=== PATIENT | male | born 1985 | race Caucasian/White ===

== ENCOUNTER 2016-10-28 13:22 | Emergency (ER) | payer SELFPAY ==
[~2016-10-28] VITALS: Wt 65.0 kg
[~2016-10-28 13:22] MED LIST: CALC400T19 PO; CLIN-73 PO; DENIES; HYDR-762 PO; IBUP800T25 PO; LORA0.5T PO; ONDA4TAB35 PO; ONDA4TAB8 PO; RANI150T9 PO
[2016-10-28] MEDS ORDERED: morphine 4 MG/ML VIAL IV STA (14:06)
[2016-10-28] MEDS ORDERED: SOD CHLORIDE 0.9% 1,000 ML IV STA (14:06)
[2016-10-28] MEDS ORDERED: ONDANSETRON 4 MG INJ IV STA ×2 (14:06→14:58)
[2016-10-28] MEDS ORDERED: ESOM20CA PO (14:21)
[2016-10-28 14:35] LABS: BASOPHILS % 0.4 % (0.0-2.0); EOSINOPHILS # 0.1 10^3/ul (0.0-0.5); EOSINOPHILS % 0.9 % (0.0-7.0); HEMATOCRIT 47.2 % (42.0-52.0); HEMOGLOBIN 16.6 g/dl (14.0-18.0); LYMPHOCYTES # 0.4 10^3/ul (0.8-2.9); LYMPHOCYTES % 5.5 % (15.0-51.0); MEAN CORPUSCULAR HGB CONC 35.2 g/dl (32.0-37.0); MEAN CORPUSCULAR VOLUME 90.9 fl (82.0-101.0); MEAN PLATELET VOLUME 7.1 fl (7.4-10.4); MONOCYTE # 0.7 10^3/ul (0.3-0.9); NEUTROPHIL # 6.1 10^3/ul (1.6-7.5); NEUTROPHILS % 84.2 % (39.0-77.0); PLATELET COUNT 243 10^3/UL (140-440); RED CELL DISTRIBUTION WIDTH 12.8 % (11.5-14.5); UNCORRECTED WBC 7.3 10^3/ul (4.8-10.8); WHITE BLOOD COUNT 7.3 10^3/ul (4.8-10.8)
[2016-10-28 14:38] LABS: CONDITION 1
[2016-10-28 14:40] LABS: INR 0.97; PARTIAL THROMBOPLASTIN TIME 30.4 Sec (25.0-35.0); PROTIME 12.9 Sec (12.2-14.2)
[2016-10-28] MEDS ORDERED: BELLADONNA/PHENOBARBITAL TAB PO STA (14:58)
[2016-10-28] MEDS ORDERED: HYDROmorphONE 1 MG/ML SYG IV STA (14:58)
[2016-10-28] MEDS ORDERED: LIDOCAINE/MYLANTA 40 ML BTL PO STA (14:58)
[2016-10-28 15:22] LABS: POTASSIUM 3.8 mmol/L (3.5-5.1)
[2016-10-28 15:24] LABS: ALBUMIN/GLOBULIN RATIO 1.61; BILIRUBIN,INDIRECT 1.2 mg/dl (0-1.1); BILIRUBIN,TOTAL 1.2 mg/dl (0.2-1.3); CREATININE 0.87 mg/dl (0.61-1.24); TOTAL PROTEIN 8.1 g/dl (6.1-8.1)
[2016-10-28 15:25] LABS: CALCIUM 9.8 mg/dl (8.4-10.2)
[2016-10-28] MEDS ORDERED: ACETAMINOPHEN 500 MG TAB PO STA (15:36)
[2016-10-28] MEDS ORDERED: IBUPROFEN 800 MG TAB PO ONE (16:00)
[2016-10-28] MEDS ORDERED: SOD CHLORIDE 0.9% 100 ML ONE (16:52)
[2016-10-28] MEDS ORDERED: IOHEXOL 300MG/ML 150 ML BTL ONE (16:52)
[2016-10-28 17:05] LABS: ADD UMIC YES; URINE BILIRUBIN (Dip) NEGATIVE (NEGATIVE); URINE BLOOD (Dip) TRACE (NEGATIVE); URINE COLOR LT. YELLOW (YELLOW); URINE GLUCOSE (Dip) NEGATIVE (NEGATIVE); URINE KETONES (Dip) NEGATIVE (NEGATIVE); URINE LEUKOCYTE ESTERASE (Dip) NEGATIVE (NEGATIVE); URINE NITRITE (Dip) NEGATIVE (NEGATIVE); URINE TOTAL PROTEIN (Dip) NEGATIVE (NEGATIVE); URINE UROBILINOGEN (Dip) 1.0 E.U./dL (0.1-1.0)
[2016-10-28 17:21] LABS: URINE RBCS 0-2 /HPF (0)
--- NOTE | 2016-10-28 17:24 | RADRPT ---
PROCEDURE: CT Abdomen and Pelvis with contrast. CLINICAL INDICATION: Abdomen and pelvis pain. TECHNIQUE: CT scan of the abdomen and pelvis with contrast was performed. The patient was scanned following the uncomplicated intravenous administration of 100 cc of Omnipaque-300. Coronal and sag ittal reformatted images were obtained from the axial source images. Images were reviewed on a high- resolution PACS workstation. Total exam DLP is 858.74 mGy-cm. CTDIvol is 15.21 mGy. One or more o f the following dose reduction techniques were used: Automated exposure control, adjustment of the m A and/or kV according to patient size, use of iterative reconstruction technique. COMPARISON: Right upper quadrant abdomen ultrasound dated 12/30/2015. FINDINGS: The lung bases are normal. There is no pleural effusion. The liver is normal in size and attenuation. There is no focal hepatic lesion. The gallbladder and bile ducts are normal. The spleen is normal in size. There is no focal splenic lesion. Both adrenals are normal with no enlargement or mass. The pancreas is unremarkable with no mass or evidence of pancreatitis. Both kidneys demonstrate normal contrast enhancement. There is no renal mass or hydronephrosis. The abdominal aorta is not dilated. There is no retroperitoneal lymphadenopathy or mass. There is no pelvic lymphadenopathy or mass. The bladder and distal ureters are normal. The periappendiceal region is unremarkable with no evidence of appendicitis. The appendix is well se en and appears normal. The bowel and mesentery are normal. There is no free fluid or free gas. The osseous structures are unremarkable with no fracture or lytic lesion. IMPRESSION: 1. Unremarkable CT scan of the abdomen and pelvis. RPTAT: QQ .Irving Yoder MD, Date Time Electronically viewed and signed by .Irving Yoder MD, MD on 10/28/2016 17:24 .R/
[2016-10-28] MEDS ORDERED: DICLOFENAC SODIUM 37.5 MG/ML VIAL IV STA (17:42)
--- NOTE | 2016-10-28 18:00 | ERD ---
ER Documentation Chief Complaint Date/Time DATE: 10/28/16 TIME: 17:52 Chief Complaint lower abd pain with no signs of dysuria. nausea and vomiting. HPI This is a 31-year-old male with no past medical history that presents to the emergency department complaining of a sudden onset of severe diffuse abdominal cramping that occurred roughly 5 hours prior to arrival. He stated he felt very nauseous and had 3 episodes of nonbloody nonbilious emesis. He also states he had loose watery stools. He denies any recent travel or prolonged immobilization. He stated he had tactile fever with no shaking or chills. He did not take any antipyretics prior to arrival. He denies any chest pain or pressure that radiates to the neck arm back or jaw. He denies a sore throat. He denies a productive or nonproductive cough. Indicates he has never had any similar symptoms in the past. He denies any recent remote blunt or penetrating chest or abdominal wall trauma. He states he is not currently been on any antibiotics. He denies any recent ethanol intake or illicit drug use ROS All systems reviewed and are negative except as per history of present illness. Medications Home Meds Active Scripts Ibuprofen* (Motrin*) 800 Mg Tab, 800 MG PO Q6H Y for PAIN AND OR ELEVATED TEMP, #30 TAB Prov:MARISSA MILLER 10/28/16 Ondansetron (Ondansetron Odt) 4 Mg Tab.rapdis, 4 MG PO Q6H Y for NAUSEA AND/OR VOMITING, #10 TAB Prov:MARISSA MILLER 10/28/16 Reported Medications Esomeprazole Mag Trihydrate (Nexium) 20 Mg Capsule.dr, 20 MG PO DAILY, #30 CAP 10/28/16 Discontinued Reported Medications [Denies] No Conflict Check 12/19/09 Discontinued Scripts Ondansetron Hcl* (Zofran*) 4 Mg Tablet, 4 MG PO Q6H for NAUSEA AND/OR VOMITING, #10 TAB Prov:PRINCE HAWLEY NP 04/12/16 Ranitidine Hcl* (Zantac*) 150 Mg Tablet, 150 MG PO BID Y for EPIGASTRIC PAIN, # 10 TAB Prov:PRINCE HAWLEY NP 04/12/16 Lorazepam* (Lorazepam*) 0.5 Mg Tablet, 0.5 MG PO Q6 Y for ANXIETY, #5 TAB Prov:RAINER HERNANDEZ PA-C 02/04/16 Ondansetron Hcl* (Zofran*) 4 Mg Tablet, 4 MG PO Q8H Y for NAUSEA AND/OR VOMITING , #10 TAB Prov:CHULA SHELDON 02/02/16 Ranitidine Hcl* (Zantac*) 150 Mg Tablet, 150 MG PO BID Y for EPIGASTRIC PAIN, # 30 TAB Prov:CHULA SHELDON 02/02/16 Ondansetron Hcl* (Zofran* ODT) 4 mg -ODT Tab.disper, 4 MG PO Q6 Y for NAUSEA AND /OR VOMITING, #30 TAB Prov:ABDIAS ZAMARRIPA MD 12/30/15 Hydrocodone Bit-Acetaminophen* (Randall*) 10-325 Mg Tablet, 1 TAB PO Q6 Y for PAIN , #7 TAB Prov:ABDIAS ZAMARRIPA MD 12/30/15 Ibuprofen* (Motrin*) 800 Mg Tab, 800 MG PO Q6, #30 TAB Prov:JESSIKA NORIEGA PA-C 04/27/15 Clindamycin Hcl* (Clindamycin Hcl*) 300 Mg Capsule, 300 MG PO QID for 7 Days, CAP Prov:OSVALDO HAUSER WIRE PREPARATION WORKER 04/26/15 Calcium Carbonate* (Tums* Ultra) 1,000 Mg Tab.chew, 1000 MG PO TID, #30 TAB.CHEW Prov:OSVALDO HAUSER WIRE PREPARATION WORKER 02/14/15 Allergies Allergies: Coded Allergies: No Known Drug Allergies (Verified Allergy, Mild, 03/31/11) PMhx/Soc History of Surgery: No Anesthesia Reaction: No Hx Neurological Disorder: No Hx Respiratory Disorders: No Hx Cardiac Disorders: No Hx Psychiatric Problems: No Hx Miscellaneous Medical Probl: Yes (gastritis) Hx Alcohol Use: Yes (DRINK 7 BEERS 04/11/16) Hx Substance Use: Yes (CRYSTAL METH 04/11/16, AFTER 2YRS CLEAN) Hx Tobacco Use: No Smoking Status: Never smoker Physical Exam Vitals Vital Signs Date Time Temp Pulse Resp B/P Pulse Ox O2 Delivery O2 Flow Rate FiO2 10/28/16 13:27 101.5 125 22 138/85 98 Physical Exam Constitutional:Well-developed. Well-nourished. Patient was unable to sit still in a stretcher as he appeared to be in a significant amount of discomfort HEENT:Normocephalic. Atraumatic.Pupils were equal round reactive to light. Moist mucous membranes.No tonsillar exudates. Neck: No nuchal rigidity. No lymphadenopathy. No posterior cervical spine tenderness or step-offs. Respiratory: Not using accessory muscles of respiration.Lungs were clear to auscultation bilaterally. No rhonchi. No rales. No wheezing. Cardiovascular: Regular rate regular rhythm.No murmurs. No rubs were appreciated.S1, S2 normal. Distal pulses are palpable 2+ bilaterally. GI: Abdomen was soft. Diffuse abdominal tenderness. Non Distended. No pulsatile abdominal masses or bruits. No rebound. No guarding. Hyperactive bowel sounds Muscle skeletal: Full range of motion of both the upper and lower extremities bilaterally.Normal muscle tone.No assymetrical calf tenderness or swelling. Skin: No petechia, no purpura. No lesions on the palms or the soles of the feet. No maculopapular rash. NEURO: Patient was alert, awake, orientated x3.No facial droop. Gait observed and normal with no ataxia.Speech had regular rate and rhythm. No focal neurological deficits. Result Diagram: 10/28/16 1415 10/28/16 1415 Results 24 hrs Laboratory Tests Test 10/28/16 14:15 10/28/16 16:22 Activated Partial Thromboplast Time 30.4Sec Alanine Aminotransferase (ALT/SGPT) 66IU/L Albumin 5.0g/dl Albumin/Globulin Ratio 1.61 Alkaline Phosphatase 96IU/L Amylase Level 98U/L Anion Gap 21 Aspartate Amino Transf (AST/SGOT) 84IU/L Basophils # 0.010^3/ul Basophils % 0.4% Blood Morphology Comment Blood Urea Nitrogen 11mg/dl Calcium Level 9.8mg/dl Carbon Dioxide Level 25mmol/L Chloride Level 97mmol/L Creatinine 0.87mg/dl Direct Bilirubin 0.00mg/dl Eosinophils # 0.110^3/ul Eosinophils % 0.9% Globulin 3.10g/dl Glucose Level 114mg/dl Hematocrit 47.2% Hemoglobin 16.6g/dl INR International Normalized Ratio 0.97 Indirect Bilirubin 1.2mg/dl Lipase 84U/L Lymphocytes # 0.410^3/ul Lymphocytes % 5.5% Mean Corpuscular Hemoglobin 32.0pg Mean Corpuscular Hemoglobin Concent 35.2g/dl Mean Corpuscular Volume 90.9fl Mean Platelet Volume 7.1fl Monocytes # 0.710^3/ul Monocytes % 9.0% Neutrophils # 6.110^3/ul Neutrophils % 84.2% Nucleated Red Blood Cells # 0.010^3/ul Nucleated Red Blood Cells % 0.0/100WBC Platelet Count 56289^3/UL Potassium Level 3.8mmol/L Prothrombin Time 12.9Sec Prothrombin Time Ratio 1.0 Red Blood Count 5.2010^6/ul Red Cell Distribution Width 12.8% Sodium Level 139mmol/L Total Bilirubin 1.2mg/dl Total Protein 8.1g/dl White Blood Count 7.310^3/ul Urine Bilirubin NEGATIVE Urine Clarity CLEAR Urine Color LT. YELLOW Urine Epithelial Cells OCCASIONAL Urine Glucose NEGATIVE% Urine Hemoglobin TRACE Urine Ketones NEGATIVE Urine Leukocyte Esterase NEGATIVE Urine Microscopic RBC 0-2/HPF Urine Microscopic WBC NONE SEEN/HPF Urine Nitrite NEGATIVE Urine Specific [place] 1.015 Urine Total Protein NEGATIVE Urine Urobilinogen 1.0 E.U./dL Urine pH 6.5 Current Medications Medications (Trade) Dose Ordered Sig/Pati Route PRN Reason Start Time Stop Time Status Last Admin Dose Admin Sodium Chloride (NS) 1,000 ml @ 1,000 mls/hr Q1H STAT IV 10/28/16 14:06 10/28/16 15:05 DC 10/28/16 14:24 Morphine Sulfate (morphine) 4 mg ONCE STAT IV 10/28/16 14:06 10/28/16 14:08 DC 10/28/16 14:24 Ondansetron HCl (Zofran Inj) 4 mg ONCE STAT IV 10/28/16 14:06 10/28/16 14:08 DC 10/28/16 14:24 Hydromorphone HCl (Dilaudid) 1 mg ONCE STAT IV 10/28/16 14:58 10/28/16 14:59 DC 10/28/16 15:03 Ondansetron HCl (Zofran Inj) 4 mg ONCE STAT IV 10/28/16 14:58 10/28/16 14:59 DC 10/28/16 15:03 Miscellaneous Medication (Gi Cocktail (2)) 40 ml ONCE STAT PO 10/28/16 14:58 10/28/16 14:59 DC 10/28/16 15:03 Belladonna/ Phenobarbital () 2 tab ONCE STAT PO 10/28/16 14:58 10/28/16 14:59 DC 10/28/16 15:02 Acetaminophen (Tylenol Tab) 1,000 mg ONCE STAT PO 10/28/16 15:36 10/28/16 15:37 DC Ibuprofen (Motrin) 800 mg ONCE ONCE PO 10/28/16 16:00 10/28/16 16:01 DC IV Flush 10 ml 10 ml STK-MED ONCE .ROUTE 10/28/16 16:52 10/28/16 16:53 DC 10/28/16 17:22 Sodium Chloride (NS) 100 ml @ ud STK-MED ONCE .ROUTE 10/28/16 16:52 10/28/16 16:53 DC 10/28/16 17:22 Iohexol (Omnipaque 300mg/ ml) 150 ml STK-MED ONCE .ROUTE 10/28/16 16:52 10/28/16 16:53 DC 10/28/16 17:22 Diclofenac Sodium (Dyloject) 37.5 mg ONCE STAT IV 10/28/16 17:42 10/28/16 17:49 DC 10/28/16 17:57 Procedures/MDM This patient presented to the emergency department with abdominal pain and was seen and evaluated by myself. My differential diagnosis included but was not limited to abdominal aortic aneurysm, appendicitis, pancreatitis, perforated peptic ulcer, perforated viscus, Boerhaaves syndrome or visceral pain such as diverticulitis, DKA, esophagitis, hepatitis or bowel obstruction. The patient was placed on a wire stitcher operator, continuous pulse oximetry, and IV access was established by nursing staff. The patient received intravenous morphine and zofran with minimal improvement of his pain. Therefore he received a further dose of analgesic medication which included Dilaudid. He also indicates that he has a history of reflux symptoms and requested a GI cocktail. However the patient's symptoms are not suggestive of gastroesophageal reflux disease but rather likely a viral etiology that could have resulted in the patient's low-grade fever, vomiting or diarrhea. The patient received antipyretics in the emergency department. Also obtained a CT scan of the abdomen which showed no acute surgical process. There is no evidence of urinary tract infection. Observation Note: Time: 5 hours Family Hx: No Hypertension Evaluation: Multiple exams showed improving symptoms and no evidence of peritoneal signs or surgical abdomen. The patient's symptoms had completely resolved. He was now able to tolerate oral intake in the emergency department without any subsequent emesis. The patient was discharged home in fair condition. They were instructed to return to the emergency department at any time if there was any worsening of their condition. The patient was given prescriptions of Zofran Motrin and the patient stated they would follow up with their PCP in the next 24-48 hours to initiate a suitable medication regimen under the care of their PCP as well as to allow their PCP to monitor any drug reactions. The patient was discharged home with prescriptions after they gave informed consent to the new medication. They were also fully informed by myself on the adverse effects and adverse drug interactions in order to provide adequate safeguards to prevent possible adverse reactions to medications. Departure Diagnosis: Primary Impression: Vomiting and diarrhea Additional Impression: Abdominal pain Abdominal location: generalized Qualified Code: R10.84 - Generalized abdominal pain Condition: Fair MARISSA MILLER Oct 28, 2016 18:00
[2016-10-28] MEDS ORDERED: IBUP800T25 PO (18:01)
[2016-10-28] MEDS ORDERED: ONDA4TAB14 PO (18:01)
[2016-10-28 18:22] VITALS: BP 132/85; PULSE 98; RESP 18; TEMP 98
== END 2016-10-28 18:23 | disposition home or self-care (01) ==
LOC: E/R 13:22
DX: R11.10 Vomiting, unspecified (principal); R19.7 Diarrhea, unspecified; R40.2142 Coma scale, eyes open, spontaneous, at arrival to emergency department; R40.2252 Coma scale, best verbal response, oriented, at arrival to emergency department; R40.2362 Coma scale, best motor response, obeys commands, at arrival to emergency department
CPT/HCPCS: 74177; 80053; 81001; 82150; 83690; 85025; 85610; 85730; 87400; 96374; 96375; 96376; 99285; J1170; J2270; J2405; J7030; Q9967; 81003

== ENCOUNTER 2017-05-10 13:14 | Emergency (ER) | payer MEDICAID ==
[~2017-05-10] VITALS: Ht 162.6 cm; Wt 65.0 kg
[~2017-05-10 13:14] MED LIST changes: -CALC400T19 PO; -CLIN-73 PO; -DENIES; +ESOM20CA PO; -HYDR-762 PO; -LORA0.5T PO; +ONDA4TAB14 PO; -ONDA4TAB35 PO; -ONDA4TAB8 PO; -RANI150T9 PO
[2017-05-10 13:19] VITALS: Ht 162.6 cm; Wt 65.0 kg
[2017-05-10] MEDS ORDERED: SOD CHLORIDE 0.9% 1,000 ML IV STA (15:08)
[2017-05-10] MEDS ORDERED: ONDANSETRON 4 MG INJ IV STA (15:08)
[2017-05-10] MEDS ORDERED: FAMOTIDINE 20 MG INJ IV STA (15:08)
[2017-05-10] MEDS ORDERED: LIDOCAINE/MYLANTA 40 ML BTL PO STA (15:08)
[2017-05-10 15:55] LABS: BASOPHIL # 0.1 10^3/ul (0.0-0.1); BASOPHILS % 0.8 % (0.0-2.0); EOSINOPHILS # 0.2 10^3/ul (0.0-0.5); EOSINOPHILS % 2.8 % (0.0-7.0); HEMATOCRIT 44.1 % (42.0-52.0); HEMOGLOBIN 15.7 g/dl (14.0-18.0); LYMPHOCYTES # 1.6 10^3/ul (0.8-2.9); LYMPHOCYTES % 24.9 % (15.0-51.0); MEAN CORPUSCULAR HEMOGLOBIN 31.3 pg (29.0-33.0); MEAN CORPUSCULAR HGB CONC 35.6 g/dl (32.0-37.0); MONOCYTE # 0.6 10^3/ul (0.3-0.9); MONOCYTES % 9.2 % (0.0-11.0); NEUTROPHILS % 62.1 % (39.0-77.0); PLATELET COUNT 257 10^3/UL (140-415); RED BLOOD COUNT 5.01 10^6/ul (4.70-6.10); RED CELL DISTRIBUTION WIDTH 12.1 % (11.5-14.5); WHITE BLOOD COUNT 6.4 10^3/ul (4.8-10.8)
[2017-05-10 16:14] LABS: ALANINE AMINOTRANSFERASE 50 IU/L (13-69); ALBUMIN 4.8 g/dl (3.3-4.9); ALBUMIN/GLOBULIN RATIO 1.26; ALKALINE PHOSPHATASE 100 IU/L (42-121); ANION GAP 18 (8-16); ASPARTATE AMINO TRANSFERASE 38 IU/L (15-46); BLOOD UREA NITROGEN 10 mg/dl (7-20); CALCIUM 9.8 mg/dl (8.4-10.2); CARBON DIOXIDE 26 mmol/L (21-31); CHLORIDE 101 mmol/L (97-110); CREATININE 0.95 mg/dl (0.61-1.24); GLUCOSE 100 mg/dl (70-220); POTASSIUM 3.7 mmol/L (3.5-5.1); SODIUM 141 mmol/L (135-144); TOTAL PROTEIN 8.6 g/dl (6.1-8.1)
[2017-05-10 16:15] LABS: ADD UMIC YES; UR ASCORBIC ACID NEGATIVE (NEGATIVE); UR BACTERIA FEW /HPF (NONE SEEN); UR BILIRUBIN (Dip) NEGATIVE (NEGATIVE); UR BLOOD (Dip) NEGATIVE (NEGATIVE); UR CLARITY CLOUDY (CLEAR); UR COLOR YELLOW (YELLOW); UR GLUCOSE (Dip) NEGATIVE (NEGATIVE); UR KETONES (Dip) NEGATIVE (NEGATIVE); UR LEUKOCYTE ESTERASE (Dip) NEGATIVE Leu/ul (NEGATIVE); UR MUCUS FEW /HPF (NONE SEEN); UR NITRITE (Dip) NEGATIVE (NEGATIVE); UR RBC 1 /HPF (0-5); UR SPECIFIC GRAVITY (Dip) 1.021 (1.003-1.030); UR TOTAL PROTEIN (Dip) 1+ mg/dl (NEGATIVE); UR UROBILINOGEN (Dip) 2+ mg/dL (NEGATIVE)
--- NOTE | 2017-05-10 16:16 | RADRPT ---
PROCEDURE: US Abdomen. CLINICAL INDICATION: Abdominal pain. TECHNIQUE: Multiple real-time images were acquired of the patient's abdomen and retroperitoneum ut ilizing a high resolution transducer. COMPARISON: CT scan abdomen pelvis 10/28/2016. FINDINGS: The liver is identified in the right upper quadrant and is enlarged measuring 16.1 cm AP. There are small fatty infiltration of the liver. No hepatic mass or intrahepatic biliary ductal dilatation i s identified. The gallbladder wall measures 1.9 mm. There is no evidence of cholelithiasis. The c ommon bile duct measures 3.4 mm. The hepatic and portal veins are patent. The right kidney measures 11.5 cm in length. There is no evidence of a mass or hydronephrosis invol ving the right kidney. Inferior vena cava is patent. The pancreas is not fully evaluated and mostl y obscured by bowel gas. IMPRESSION: 1. Hepatomegaly with fatty infiltration of the liver. 2. No evidence of cholelithiasis. 3. Normal common bile duct. 4. No significant changes noted compared to the CT scan of the abdomen pelvis dated 10/28/2016. RPTAT:AAJJ Physician Tania Date Time Electronically viewed and signed by Physician Tania on 05/10/2017 16:15 DINAH/
[2017-05-10 16:26] LABS: TROPONIN-I < 0.012 ng/ml (0.00-0.12)
--- NOTE | 2017-05-10 17:25 | ERD ---
ER Documentation Chief Complaint Date/Time DATE: 05/10/17 TIME: 17:20 Chief Complaint bib ra for eval of n/v x 3 hours HPI This is a 32-year-old male brought in by ambulance for nausea, vomiting, diarrhea, fatigue, abdominal bloating and generalized body aches the past 3 hours. Patient has had 3 episodes of nonbloody nonbilious emesis. Patient also reports multiple nonbloody loose stools. No melena. Patient states he feels bloated. Has been able to tolerate oral liquids. Unable to tolerate solids at home. Denies fevers or chills. No abdominal pain. No constipation. Last bowel movement earlier today. No dysuria or hematuria. No urinary frequency urgency. No recent travel. Patient did not eat any raw or undercooked mean/fish. ROS All systems reviewed and are negative except as per history of present illness. Medications Home Meds Active Scripts Ondansetron Hcl* (Zofran*) 4 Mg Tablet, 4 MG PO Q6H for NAUSEA AND/OR VOMITING, #10 TAB Prov:PRINCE HAWLEY NP 05/10/17 Ibuprofen* (Motrin*) 800 Mg Tab, 800 MG PO Q6H Y for PAIN AND OR ELEVATED TEMP, #30 TAB Prov:MARISSA MILLER 10/28/16 Ondansetron (Ondansetron Odt) 4 Mg Tab.rapdis, 4 MG PO Q6H Y for NAUSEA AND/OR VOMITING, #10 TAB Prov:MARISSA MILLER 10/28/16 Reported Medications Esomeprazole Mag Trihydrate (Nexium) 20 Mg Capsule.dr, 20 MG PO DAILY, #30 CAP 10/28/16 Allergies Allergies: Coded Allergies: No Known Drug Allergies (Verified Allergy, Mild, 03/31/11) PMhx/Soc History of Surgery: No Anesthesia Reaction: No Hx Neurological Disorder: No Hx Respiratory Disorders: No Hx Cardiac Disorders: No Hx Psychiatric Problems: No Hx Miscellaneous Medical Probl: Yes (gastritis) Hx Alcohol Use: Yes (DRINK 7 BEERS 04/11/16) Hx Substance Use: Yes (CRYSTAL METH 04/11/16, AFTER 2YRS CLEAN) Hx Tobacco Use: No Physical Exam Vitals Vital Signs Date Time Temp Pulse Resp B/P Pulse Ox O2 Delivery O2 Flow Rate FiO2 05/10/17 18:32 98.5 78 18 128/80 99 05/10/17 13:19 98.3 72 19 138/88 99 Physical Exam Const: alert, non toxic appearing Head: Atraumatic Eyes: Normal Conjunctiva ENT: Normal External Ears, Nose and Mouth. Neck: Full range of motion..~ No meningismus. Resp: Clear to auscultation bilaterally Cardio: Regular rate and rhythm, no murmurs Abd: Soft, non tender, non distended. Normal bowel sounds Skin: No petechiae or rashes Back: No midline or flank tenderness. No CVA tenderness. Ext: No cyanosis, or edema Neur: Awake and alert Psych: Normal Mood and Affect Result Diagram: 05/10/17 1535 05/10/17 1535 Results 24 hrs Laboratory Tests Test 05/10/17 15:35 White Blood Count 6.410^3/ul Red Blood Count 5.0110^6/ul Hemoglobin 15.7g/dl Hematocrit 44.1% Mean Corpuscular Volume 88.0fl Mean Corpuscular Hemoglobin 31.3pg Mean Corpuscular Hemoglobin Concent 35.6g/dl Red Cell Distribution Width 12.1% Platelet Count 69388^3/UL Mean Platelet Volume 9.0fl Neutrophils % 62.1% Lymphocytes % 24.9% Monocytes % 9.2% Eosinophils % 2.8% Basophils % 0.8% Nucleated Red Blood Cells % 0.0/100WBC Neutrophils # (Manual) 4.010^3/ul Lymphocytes # 1.610^3/ul Monocytes # 0.610^3/ul Eosinophils # 0.210^3/ul Basophils # 0.110^3/ul Nucleated Red Blood Cells # 0.010^3/ul Urine Color YELLOW Urine Clarity CLOUDY Urine pH 7.0 Urine Specific [place] 1.021 Urine Ketones NEGATIVEmg/dL Urine Nitrite NEGATIVEmg/dL Urine Bilirubin NEGATIVEmg/dL Urine Urobilinogen 2+mg/dL Urine Leukocyte Esterase NEGATIVELeu/ul Urine Microscopic RBC 1/HPF Urine Microscopic WBC 3/HPF Urine Bacteria FEW/HPF Urine Mucus FEW/HPF Urine Hemoglobin NEGATIVEmg/dL Urine Glucose NEGATIVEmg/dL Urine Total Protein 1+mg/dl Sodium Level 141mmol/L Potassium Level 3.7mmol/L Chloride Level 101mmol/L Carbon Dioxide Level 26mmol/L Anion Gap 18 Blood Urea Nitrogen 10mg/dl Creatinine 0.95mg/dl Glucose Level 100mg/dl Calcium Level 9.8mg/dl Total Bilirubin 1.0mg/dl Direct Bilirubin 0.00mg/dl Indirect Bilirubin 1.0mg/dl Aspartate Amino Transf (AST/SGOT) 38IU/L Alanine Aminotransferase (ALT/SGPT) 50IU/L Alkaline Phosphatase 100IU/L Troponin I < 0.012ng/ml Total Protein 8.6g/dl Albumin 4.8g/dl Globulin 3.80g/dl Albumin/Globulin Ratio 1.26 Lipase 63U/L Current Medications Medications (Trade) Dose Ordered Sig/Pati Route PRN Reason Start Time Stop Time Status Last Admin Dose Admin Sodium Chloride (NS) 1,000 ml @ 1,000 mls/hr Q1H STAT IV 05/10/17 15:08 05/10/17 16:07 DC 05/10/17 15:39 Ondansetron HCl (Zofran Inj) 4 mg ONCE STAT IV 05/10/17 15:08 05/10/17 15:13 DC 05/10/17 15:38 Famotidine (Pepcid Iv) 20 mg ONCE STAT IV 05/10/17 15:08 05/10/17 15:13 DC 05/10/17 15:38 Miscellaneous Medication (Gi Cocktail (2)) 40 ml ONCE STAT PO 05/10/17 15:08 05/10/17 15:13 DC 05/10/17 15:39 Procedures/MDM EKG: As interpreted by myself and Dr. Chandra Rate/Rhythm: Normal sinus rhythm with heart rate 65 bpm QRS, ST, T-waves: No changes consistent w/ acute ischemia Impression: No evidence of ischemia or arrhythmia [place] [id number] Radiology Main Line: [phone] DIAGNOSTIC IMAGING REPORT Patient: CURT KRUEGER : 1985 Age: 32 Sex: M MR #: [id number] DOS: 05/10/17 1508 Ordering MD: PRINCE HAWLEY NP Location: [facility] Room/Bed: PROCEDURE: US Abdomen. CLINICAL INDICATION: Abdominal pain. TECHNIQUE: Multiple real-time images were acquired of the patient's abdomen and retroperitoneum utilizing a high resolution transducer. COMPARISON: CT scan abdomen pelvis 10/28/2016. FINDINGS: The liver is identified in the right upper quadrant and is enlarged measuring 16.1 cm AP. There are small fatty infiltration of the liver. No hepatic mass or intrahepatic biliary ductal dilatation is identified. The gallbladder wall measures 1.9 mm. There is no evidence of cholelithiasis. The common bile duct measures 3.4 mm. The hepatic and portal veins are patent. The right kidney measures 11.5 cm in length. There is no evidence of a mass or hydronephrosis involving the right kidney. Inferior vena cava is patent. The pancreas is not fully evaluated and mostly obscured by bowel gas. IMPRESSION: 1. Hepatomegaly with fatty infiltration of the liver. 2. No evidence of cholelithiasis. 3. Normal common bile duct. 4. No significant changes noted compared to the CT scan of the abdomen pelvis dated 10/28/2016. DIAGNOSTIC IMAGING REPORT Patient: CURT KRUEGER : 1985 Age: 32 Sex: M MR #: [id number] DOS: 05/10/17 1508 Ordering MD: PRINCE HAWLEY NP Location: [facility] Room/Bed: PROCEDURE: CT abdomen and pelvis without contrast. CLINICAL INDICATION: Abdominal pain. TECHNIQUE: CT scan of the abdomen and pelvis without contrast was performed on a multi-slice CT scanner . Oral contrast was also administered. Sagittal and coronal reformatted images were obtained from the axial source images. One or more of the following dose reduction techniques were used: - Automated exposure control. - Adjustment of the mA and/or kV according to patient size. - Use of iterative reconstruction technique. DLP 468.5 mGycm. CTDIvol 8.3 mGy COMPARISON: 10/28/2016 FINDINGS: The lung bases are clear. There is limited evaluation of the solid viscera from the lack of IV contrast. The kidneys are symmetric bilaterally with no evidence of renal or ureteral calculi. There is no hydronephrosis or perinephric stranding. There is hepatomegaly with mild fatty infiltration of the liver with no gross focal lesion or biliary ductal dilatation. The gallbladder is unremarkable without inflammation. The spleen is mildly enlarged. The adrenal glands are within normal limits without mass. The pancreas is unremarkable without focal lesion or surrounding inflammatory changes. There is no bowel obstruction or focal bowel inflammation. The appendix is unremarkable. There is mild fluid distension of the colon. There is no free air or free fluid. There are no enlarged lymph nodes. The aorta is unremarkable and there is no acute osseous abnormality. The prostate is grossly unremarkable. IMPRESSION: No evidence of renal or ureteral calculi or hydronephrosis. There is possible mild colonic ileus without evidence of obstruction or appendicitis. Hepatosplenomegaly is seen with mild fatty infiltration of the liver. MDM: This is a 32-year-old male presenting to the emergency department with nausea, vomiting, diarrhea, fatigue and abdominal bloating for the past 3 hours. Patient is afebrile upon arrival to ED and vital signs are stable. IV access obtained and labs drawn. Patient given Zofran and Pepcid IV. Patient also given GI cocktail p.o. CBC shows no significant anemia or infection. CMP shows no significant electrolyte imbalance. Liver enzymes are normal. Bilirubin is normal. Lipase is 63. UA is negative for infection. Influenza swab is negative. US gallbladder reviewed by radiologist as Hepatomegaly with fatty infiltration of the liver. No evidence of cholelithiasis. Normal common bile duct. CT abdomen and pelvis reviewed by radiologist as No evidence of renal or ureteral calculi or hydronephrosis. There is possible mild colonic ileus without evidence of obstruction or appendicitis. Hepatosplenomegaly is seen with mild fatty infiltration of the liver. Upon reassessment, patient states symptoms have not improved. Patient no longer feels nauseous. No episodes of vomiting or diarrhea while in ED. No abdominal pain. Consulted Dr. Chandra regarding this patient and he agrees with my plan of care for outpatient management with zofran. Differential diagnosis includes but not limited to acute appendicitis, diverticulitis, diverticulosis, bowel obstruction, constipation, infectious colitis, irritable bowel syndrome, inflammatory bowel disease, viral gastroenteritis, abdominal aortic aneurysm, food intolerance, celiac disease, UTI, pyelonephritis, nephrolithiasis, acute urinary retention or colorectal cancer. I doubt any emergent conditions such as appendicitis, diverticulitis, bowel obstruction, abdominal aortic aneurysm at this time due to normal vital signs and normal lab results. Patient is appropriate for outpatient management. Patient will be given prescription for Zofran. Instructed patient to follow-up with primary care provider in the next 2-3 days for reassessment and additional management. Return to ED for any high fever, chest pain, difficulty breathing, shortness breath, wheezing, vomiting, diarrhea, abdominal pain or any new or worsening symptoms. Patient verbalizes understanding. All questions answered at discharge. Disclaimer: Inadvertent spelling and grammatical errors are likely due to EHR/ dictation software use and do not reflect on the overall quality of patient care. Also, please note that the electronic time recorded on this note does not necessarily reflect the actual time of the patient encounter. Departure Diagnosis: Primary Impression: Gastroenteritis Condition: PRINCE Wynn NP May 10, 2017 17:25
--- NOTE | 2017-05-10 17:45 | RADRPT ---
PROCEDURE: CT abdomen and pelvis without contrast. CLINICAL INDICATION: Abdominal pain. TECHNIQUE: CT scan of the abdomen and pelvis without contrast was performed on a multi-slice CT [facility], [place] . Oral contrast was also administered. Sagittal and coronal reformatted images were obtaine d from the axial source images. One or more of the following dose reduction techniques were used: - Automated exposure control. - Adjustment of the mA and/or kV according to patient size. - Use of iterative reconstruction technique. DLP 468.5 mGycm. CTDIvol 8.3 mGy COMPARISON: 10/28/2016 FINDINGS: The lung bases are clear. There is limited evaluation of the solid viscera from the lack of IV con trast. The kidneys are symmetric bilaterally with no evidence of renal or ureteral calculi. There is no hy dronephrosis or perinephric stranding. There is hepatomegaly with mild fatty infiltration of the liver with no gross focal lesion or biliar y ductal dilatation. The gallbladder is unremarkable without inflammation. The spleen is mildly enlarged. The adrenal glands are within normal limits without mass. The pancreas is unremarkable without focal lesion or surrounding inflammatory changes. There is no bowel obstruction or focal bowel inflammation. The appendix is unremarkable. There is m ild fluid distension of the colon. There is no free air or free fluid. There are no enlarged lymph nodes. The aorta is unremarkable and there is no acute osseous abnormality. The prostate is grossly unremarkable. IMPRESSION: No evidence of renal or ureteral calculi or hydronephrosis. There is possible mild colonic ileus without evidence of obstruction or appendicitis. Hepatosplenomegaly is seen with mild fatty infiltration of the liver. RPTAT: AA .Zoie Allison MD, MD Date Time Electronically viewed and signed by .Zoie Allison MD, MD on 05/10/2017 17:45 .Preeti/
[2017-05-10] MEDS ORDERED: ONDA4TAB8 PO (18:01)
[2017-05-10 18:32] VITALS: BP 128/80; PULSE 78; RESP 18; TEMP 98.5
== END 2017-05-10 18:33 | disposition home or self-care (01) ==
LOC: FTE 13:14
DX: K52.9 Noninfective gastroenteritis and colitis, unspecified (principal); R53.83 Other fatigue
CPT/HCPCS: 36415; 74176; 76705; 80053; 81001; 83690; 84484; 85025; 87400; 93005; 96374; 96375; J2405; J7030; Z7502; Z7610

== ENCOUNTER 2017-09-06 07:17 | Emergency (ER) | END 2017-09-06 10:07 | disposition home or self-care (01) ==

== ENCOUNTER 2017-10-29 19:30 | Emergency (ER) | END 2017-10-30 02:34 | disposition home or self-care (01) ==

== ENCOUNTER 2018-05-03 06:07 | Emergency (ER) | END 2018-05-03 07:37 | disposition home or self-care (01) ==